=== PATIENT | female | born 1950 | race Caucasian/White ===

== ENCOUNTER → 2016-09-08 | Outpatient (CLI) | payer MEDICARE, OTHER ==
[2016-09-08 12:15] LABS: BASOPHILS % (AUTO) 0 % (0-2); EOSINOPHILS # (AUTO) 0.2 10^3uL; EOSINOPHILS % (AUTO) 3 % (0-4); LYMPHOCYTES # (AUTO) 1.8 X10^3; MEAN CORPUSCULAR HEMOGLOBIN 29.4 PG (26.0-34.0); MEAN CORPUSCULAR VOLUME 89 FL (80-100); MEAN PLATELET VOLUME 10.8 FL (6.0-9.5); MONOCYTES # (AUTO) 0.6 X10^3; MONOCYTES % (AUTO) 10 % (3-11); NEUTROPHILS # (AUTO) 3.2 X10^3; NEUTROPHILS % (AUTO) 55 % (51-67); PLATELET COUNT 237 10^3uL (150-450); WHITE BLOOD COUNT 5.72 10^3uL (4.0-11.0)
[2016-09-08 12:41] LABS: ANION GAP 15.3 MEQ/L (3-15)
== END ==
LOC: LAB 12:01
PROVIDERS: ATTEND Family Medicine
DX: R06.00 Dyspnea, unspecified (principal); M79.89 Other specified soft tissue disorders
CPT/HCPCS: 36415; 80048; 85025; 85379

== ENCOUNTER → 2016-11-11 | Outpatient (CLI) | payer MEDICARE, OTHER ==
[~2016-11-11] MED LIST: ESTR0.5T PO; GABA800T2 PO; HCTZ12.5T PO; MELO-249 PO; TRAM-25 PO; [UNRECOGNIZED DRUG - CODE] PO; methylPREDNISolone 80 MG/ML (DEPO MEDROL) VIAL IM ONE
--- NOTE | 2016-11-11 15:06 | PAIN MANAGEMENT ---
Date of note: 11/11/2016 PROCEDURE: Epidural steroid injection L5-S1. This is a 66-year-old patient of Dr. Franky Vidal. Radha presents with a long standing history of spinal stenosis. She has had an epidural at another facility approximately 10 years ago. Informed consent was achieved for an epidural steroid injection at L5-S1. She does have some symptoms of sacral stenosis also however today we are going to address the lumbar area. That seems to be her main focal point of discomfort. Informed consent was achieved. She was placed in the left lateral decubitus position. Orders for procedure verified. Patient denies any bleeding tendencies. After informed consent obtained, the patient was positioned for the lumbar epidural steroid injection. The area was prepped and draped using aseptic technique. The skin and overlying tissues were localized using 3 mL of 1% Preservative-Free lidocaine using a 25-gauge 1.5-inch needle. A 20-gauge Tuohy needle was advanced, using "loss of resistance" technique, to the epidural space. No blood, cerebral spinal fluid, pain, or paresthesia noted on entry of the epidural space. A 1 mL solution of Depo-Medrol 80 mg was injected slowly without mass volume effect. The patient was placed in supine position 15 minutes prior to being released with proper leg strength and vitals. Pre- and post procedure vital signs stable with no sensory or motor deficit noted. Instruction on followup contact and care provided to the patient.
== END ==
LOC: PMC 12:53
PROVIDERS: ATTEND Family Medicine
DX: M48.07 Spinal stenosis, lumbosacral region (principal)